=== PATIENT | male | born 1960 | race Two or more races ===

== ENCOUNTER → 2016-08-16 | Outpatient (REF) | payer OTHER | LOC: M SMT 17:15 | PROVIDERS: ATTEND Nurse Practitioner Women's Health | DX: R39.15 Urgency of urination (principal) ==

== ENCOUNTER → 2022-05-03 | Outpatient (CLI) | payer OTHER | LOC: M RAD 16:06 | PROVIDERS: ATTEND Family Medicine | DX: H93.19 Tinnitus, unspecified ear (principal); H91.8X9 Other specified hearing loss, unspecified ear ==